=== PATIENT | male | born 2005 | race African-American/Black ===

== ENCOUNTER 2024-11-30 14:37 | Emergency (ER) | payer BC, SELFPAY ==
--- NOTE | ~2024-11-30 | CT_ITS ---
CLINICAL INDICATION: Abdominal pain and diarrhea COMPARISON: . TECHNIQUE: Multiple contiguous axial images of the abdomen and pelvis were performed following the ad ministration of with 100 mL Omnipaque-350 intravenous contrast The dose-length product (DLP) was 352.30 mGy-cm. Automated exposure control and iterative reconstruction technique were employed. FINDINGS/OBSERVATIONS: Visualized lower thorax: The bilateral lung bases are clear. The heart is of normal size, without pericardial effusion. Liver: The liver enhances homogeneously and is not enlarged measuring 17 cm in longitudinal dimension. Gallbladder and biliary system: The gallbladder is only minimally distended, and otherwise unremarkable. Pancreas: The pancreas enhances homogeneously without ductal dilatation. Spleen: The spleen enhances homogeneously and is not enlarged measuring 8 cm in longitudinal dimension. Kidneys: The bilateral kidneys enhance symmetrically without hydronephrosis or renal calculi. Adrenal glands: Unremarkable. Gastrointestinal tract: Significant fecal stasis is identified within the colon. Appendix: The air-filled appendix is of normal caliber (axial series, images 84 through 110) Vasculature: Unremarkable. Lymph nodes: No pathologically enlarged or morphologically suspicious lymph nodes within the retroperitoneum or at the root of the mesentery. Pelvic structures: The bladder is decompressed and otherwise unremarkable. The prostate gland is not enlarged. Body wall and musculoskeletal: No significant degenerative disease within the lower thoracic or lumbosacral spine. IMPRESSION: No acute intra-abdominal pathology, as detailed above Reviewed, dictated and finalized at location A. ITE HELPER
[2024-11-30 15:07] VITALS: BP 128/71; PULSE 90; RESP 19; TEMP 36.7; O2SAT 100
--- NOTE | 2024-11-30 15:32 | ED_ITS ---
HPI - General Adult General Chief complaint: Nausea/Vomiting/Diarrhea Stated complaint: diarrhea History of Present Illness HPI narrative: 19-year-old male with history of gastritis presented to the emergency department for evaluation for worsening left upper quadrant abdominal pain. Patient states last night he had increased emesis with associated abdominal pain. Patient also does report left lower quadrant abdominal pain. Patient states that he does not take daily medications but has been using Tums more frequently. Patient denies frequent ibuprofen use, denies any current alcohol. Related Data Allergies Allergy/AdvReac Type Severity Reaction Status Date / Time No Known Drug Allergies Allergy Unknown Verified 11/30/24 15:45 Review of Systems 2 Review of Systems: All systems reviewed & are unremarkable except as noted in HPI and below Exam 2 Narrative: APPEARANCE: Well appearing, no pain, no distress, well-nourished. HEAD: normocephalic, atraumatic. EYES: PERRLA/EOMI, conjunctivae clear. NOSE: Normal no drainage EARS:TMS clear with good light reflex. THROAT: Pharynx clear, no exudate. NECK: Supple. No adenopathy, no masses. RESPIRATORY: Airway patent, respirations nonlabored. Clear to auscultation bilaterally, no rales, rhonchi, wheezing. CARDIOVASCULAR: Regular rate and rhythm without murmurs rubs or gallops. ABDOMINAL: Soft, nontender, nondistended, normal bowel sounds MUSCULOSKELETAL: Moves all extremities. Strength/ROM intact, No edema, No calf tenderness. NEURO: Alert. Cranial nerves II through XII intact. Good gait. Good coordination SKIN: Warm, dry. Normal Color Course Vital Signs Vital signs: Vital Signs Temperature 98.1 F 11/30/24 15:07 Pulse Rate 90 11/30/24 15:07 Respiratory Rate 19 11/30/24 15:07 Blood Pressure 128/71 11/30/24 15:07 Pulse Oximetry 100 11/30/24 15:07 Temperature 98.1 F 11/30/24 15:07 Pulse Rate 90 11/30/24 15:07 Respiratory Rate 19 11/30/24 15:07 Blood Pressure 128/71 11/30/24 15:07 Pulse Oximetry 100 11/30/24 15:07 Medical Decision Making [facility] Narrative Medical decision making narrative: 19-year-old male presented emergency department for evaluation for epigastric and left upper quadrant abdominal pain. Patient is afebrile with no leukocytosis hemoglobin of 15.1. Patient's INR is 1.1. Patient has no acute abnormalities on his CMP. CTA was negative with no acute abdominal pathology. Patient was advised to avoid NSAIDs, avoid alcohol and to take omeprazole. Patient was encouraged close follow-up with GI. All questions concerns were addressed. Differential Diagnosis Differential Diagnosis: Colitis, diverticulitis, gastritis, gastric ulcer, upper GI bleed Vital Signs Vital Signs: Vital Signs Temperature 98.1 F 11/30/24 15:07 Pulse Rate 90 11/30/24 15:07 Respiratory Rate 19 11/30/24 15:07 Blood Pressure 128/71 11/30/24 15:07 Pulse Oximetry 100 11/30/24 15:07 Temperature 98.1 F 11/30/24 15:07 Pulse Rate 90 11/30/24 15:07 Respiratory Rate 19 11/30/24 15:07 Blood Pressure 128/71 11/30/24 15:07 Pulse Oximetry 100 11/30/24 15:07 Lab Data Lab results reviewed: Yes I reviewed the patient's lab results. 11/30/24 16:12 11/30/24 16:12 Labs: Lab Results 11/30/24 Range/Units 16:12 WBC 8.1 (4.5-10.0) K/mm3 RBC 5.32 (4.6-6.20) M/mm3 Hgb 15.1 (14.0-18.0) g/dL Hct 45.8 (42.0-52.0) % MCV 86.1 (80-100) fl MCH 28.4 (26-34) pg MCHC 33.0 (32-36) g/dl RDW 13.4 (11.5-14.5) % Plt Count 221 (150-375) k/mm3 MPV 9.4 (7.4-10.4) fl Immature Gran % (Auto) 0.4 (0-0.5) % Neut % (Auto) 77.6 H (45.5-73.1) % Lymph % (Auto) 16.1 L (18.3-44.2) % [place] % (Auto) 5.3 (2.6-8.5) % Eos % (Auto) 0.1 (0-4.4) % Baso % (Auto) 0.5 (0.2-1.2) % Lymph # (Auto) 1.31 (0.9-3.2) K/mm3 [place] # (Auto) 0.4 (0.1-0.6) K/mm3 Eos # (Auto) 0.0 (0-0.3) K/mm3 Baso # (Auto) 0.0 (0.0-0.1) K/mm3 Abs Immat Gran (auto) 0.03 (0.00-0.031) K/mm3 Absolute Neuts (auto) 6.3 (1.3-6.7) K/mm3 Absolute Nucleated RBC 0.000 (0.0-0.012) K/mm3 Nucleated RBC % 0.0 (0.0-0.2) % PT 14.5 (11.1-14.7) Seconds INR 1.1 APTT 28.0 (22.3-36.8) Seconds Sodium 142 (137-145) mmol/L Potassium 3.9 (3.4-5.0) mmol/L Chloride 107 (98-107) mmol/L Carbon Dioxide 23 (22-30) mmol/L Anion Gap 12 (4-12) mmol/L BUN 10 (9-20) mg/dL Creatinine 0.94 (0.7-1.3) mg/dL Estim Creat Clear Calc 121 ml/min Estimated GFR > 60 (59 - ) Glucose 98 (65-110) mg/dL Calcium 9.9 (8.4-10.2) mg/dL Total Bilirubin 0.9 (0.2-1.3) mg/dL AST 21 (17-59) U/L ALT 18 (6-50) U/L Alkaline Phosphatase 64 (38-126) U/L Total Protein 8.0 (6.3-8.2) g/dL Albumin 4.8 (3.5-5.1) g/dL Imaging Data Radiologist's impression: Impressions Abdomen/Pelvis CT 11/30/24 18:01 IMPRESSION: No acute intra-abdominal pathology, as detailed above Discharge Plan Discharge Clinical Impression: Abdominal pain, acute, epigastric Patient Disposition: Home, Self-Care Condition: Stable Instructions: Antibiotic Form, Diet for Stomach Ulcers and Gastritis (ED), Acute Abdominal Pain (ED) Additional Instructions: Avoid alcohol and avoid NSAIDs. Omeprazole as directed for the next 14 days. Have close follow-up with your primary care physician. You should also have close follow-up with GI. If you have any worsening symptoms and please call or return to the emergency department. Patient Language: Maldivian Prescriptions: New omeprazole 20 mg capsule,delayed release(DR/EC) 20 mg PO DAILY 14 Days Qty: 14 0RF Follow-up/Referrals: PHYSICIAN NOT ON STAFF,NONSTAFF [Primary Care Provider] - Ebenezer Valdez MD [Physician] -
--- OUTSIDE RECORDS SUMMARY | 2024-11-30 15:41 | XMS_ITS | Referral Summary ---
Author Organization [facility] Address [address] [place] [address] Care Team Providers Care Toy Assembly Supervisor Name Role Phone Antoinette Hancock MD Primary Care Provider Unav ailable Allergies No known active allergies Medications * This document contains information received from the source organization and may not represent a complete record from that organization. No known medications Active Problems No known active problems Immunizations Name Administration Dates Next Due Covid-19 Vaccine Pfizer 30 mcg/0.3 ml 02/26/2021 ,02/06/2021 DTAP 06/10/2009, 6,2004,2003,2004 HEP A 06/10/2015 HEP A,Ped/Adol,(2 Dose) 06/08/2021 HEP B/HIB 01/10/2006,2004,2004 Hpv Virus Vaccine 9 Sarah Im 06/08/2021 IPV 06/10/2009, 6,2004,2003 Influenza 08/07/2019 MMR 06/10/2009,06/09/2005 Meningococcal-Menactra 06/08/2021 Meningococcal-Menveo 2month-55yr 06/10/2015 Pneumococcal (Prevnar 13) 07/13/2006,02/2005,2004,2003 TDAP 06/10/2015 Varicella 06/10/2009,06/09/2005 Social History Tobacco Use Types Packs/Day Years Used Date Smoking Tobacco: Never Smokeless Tobacco: Never Alcohol Use Standard Drinks/Week Comments No 0 (1 standard drink = 0.6 oz pur e alcohol) PHQ-2 Answer Date Recorded PHQ-2 SCORE 1 06/08/2021 Sex and Gender Information Value Date Recorded Sex Assigned at Not on file 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 Gender Identity Not on file Sexual Orientation Not on file Last Filed Vital Signs Vital Sign Reading Time Taken Comments Blood Pressure 116/68 06/08/2021 2:39 PM CDT Pulse 81 11/23/2016 2:20 PM CYLINDER MACHINE OPERATOR Temperature 36.7 C (98 F) 11/23/2016 2:20 PM CYLINDER MACHINE OPERATOR Respiratory Rate 20 11/23/2016 2:20 PM CYLINDER MACHINE OPERATOR Oxygen Saturation 100% 11/23/2016 2:20 PM CYLINDER MACHINE OPERATOR Inhaled Oxygen Concentration - - Weight 83 kg (183 lb) 06/08/2021 2:39 PM CDT Height 182.9 cm (6') 06/08/2021 2:39 PM CDT Body Mass Index 24.82 06/08/2021 2:39 PM CDT Plan of Treatment Not on file Insurance [facility] PPO [facility] PPO BC[employer] CHOICE POS Care Teams Toy Assembly Supervisor Relationship Specialty Start Date End Date Antoinette Hancock MD PCP - General PEDIATRICS 11/28/16
--- OUTSIDE RECORDS SUMMARY | 2024-11-30 15:41 | XMS_ITS | Clinical Summary ---
Author Organization [facility] Address [address] [place] [address] Care Team Providers Care Outside Contractor Sales Name Role Phone Unavailable Primary Care Provider Unavailabl e Social History Tobacco Use Types Packs/Day Years Used Date Smoking Tobacco: Never Assessed Sex and Gender Information Value Date Recorded Sex Assigned at Not on file Gender Identity Not on file Sexual Orientation Not on file Plan of Treatment Health Maintenance Due Date Last Done Comments Annual Physical (ages 3 - 21) 2007 Depression Screening 2016 Varicella Vaccine (1 of 2 - 13+ 2-dose series) 2017 HPV Vaccine (1 - Male 3-dose series) 2019 Meningococcal Serogroup B Va ccine (1 of 2 - Standard) 2020 DTaP/Tdap/Td Vaccine (1 - Tdap) 2023 Hepatitis B Vaccine (1 of 3 - 19+ 3-dose series) 2023 COVID-19 Vaccine (1 - 2023-2 5 season) 2024 Influenza Vaccine (#1) 2024 Hepatitis A Vaccine Aged Out No longe r eligible based on patient's age to complete this topic Meningococcal Vaccine Aged Out No brandy neida eligible based on patient's age to complete this topic Pneumococcal Vaccine 0-49 Aged Out No longer eligible based on patient's age to complete this topic
--- OUTSIDE RECORDS SUMMARY | 2024-11-30 15:41 | XMS_ITS | Clinical Summary ---
Author Organization [facility] Address [address] [place] [id number] Phone Care Team Providers Care Accounting Manager Assistant Controller Name Role Phone Vaccine, Dr Sethi Conditions or Problems Problem Name Problem Code Onset Date Status Entry Date Provider Comment Standard Description Annotate Vaccination [id number] (SNOMED CT) Inactive Nilda Cheema Active immunization Medications No information available. Medications Administered No information available. Allergies, Adverse Reactions, Alerts No information available. Results No information available. Plan of Care No information available. Procedures Code Procedure Name Date Entry Date CPT-0004A Admin CV-19 Pfizer Booster Vaccine 10/29 Vital Signs Date Name Value Unit Description Body Temperature 97.5 [degF] temperat ure E&M Immunizations Vaccine Administration Date Standard Description CVX Co de Dose Pfizer COVID-19 Vaccine Dose 3 Pfizer COVID-19 Vaccine Dose 3 208 0.3 mL HRSA Pfizer COVID-19 Vaccine Dose 1 HRSA Pfizer COVID-19 Vaccine Dose 1 208 Unknown HRSA Pfizer COVID-19 Vaccine Dose 2 HRSA Pfizer COVID-19 Vaccine Dose 2 208 Unknown Advance Directives No information available.
--- OUTSIDE RECORDS SUMMARY | 2024-11-30 15:41 | XMS_ITS | Clinical Summary ---
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 Gender Identity Not on file Sexual Orientation Not on file Last Filed Vital Signs Vital Sign Reading Time Taken Comments Blood Pressure 116/68 06/08/2021 2:39 PM CDT Pulse 81 11/23/2016 2:20 PM CONTRACT GRAPHIC DESIGNER Temperature 36.7 C (98 F) 11/23/2016 2:20 PM CONTRACT GRAPHIC DESIGNER Respiratory Rate 20 11/23/2016 2:20 PM CONTRACT GRAPHIC DESIGNER Oxygen Saturation 100% 11/23/2016 2:20 PM CONTRACT GRAPHIC DESIGNER Inhaled Oxygen Concentration - - Weight 83 kg (183 lb) 06/08/2021 2:39 PM CDT Height 182.9 cm (6') 06/08/2021 2:39 PM CDT Body Mass Index 24.82 06/08/2021 2:39 PM CDT Plan of Treatment Health Maintenance Due Date Last Done Comments Annual Physical 2004 Meningococcal B Vaccine (1 o f 2 - Standard) 2020 HPV Vaccines (2 - Male 3-dos e series) 07/06/2021 06/08/2021 COVID-19 Vaccine (3 - 2023-2 5 season) 2024 02/26/2021, 02/06/2021 Influenza Vaccine (#1) 2024 08/07/2019 Annual Depression Screening 10/22/2024 04/20/2018 DTaP,Tdap,and Td Vaccines (7 - Td or Tdap) 06/10/2025 06/10/2015, 06/10/2009, 01/10/2006, Additional history exists Hepatitis B Vaccines Completed 01/10/2006, 2004, 2004 Pneumococcal Vaccine: to 50yrs Completed 07/13/2006, 2004, 2004, Additional history exists MMR Vaccines Completed 06/10/2009, 06/09/2005 Varicella Vaccines Completed 06/10/2009, 06/09/2005 Hepatitis A Vaccines Completed 06/08/2021, 06/10/20 15 Meningococcal Vaccine Completed 06/08/2021, 015 [facility] CHOICE POS Care Teams Fisher Dip Net Relationship Specialty Start Date End Date Antoinette Hancock MD PCP - General PEDIATRICS 11/28/16
--- OUTSIDE RECORDS SUMMARY | 2024-11-30 15:41 | XMS_ITS | Referral Summary ---
Author Organization [facility] Address [address] [place] [id number] Care Team Providers Care Flush Tester Name Role Phone Unavailable Primary Care Provider Unavailabl e Social History Tobacco Use Types Packs/Day Years Used Date Smoking Tobacco: Never Assessed Sex and Gender Information Value Date Recorded Sex Assigned at Not on file Gender Identity Not on file Sexual Orientation Not on file Plan of Treatment Not on file
--- OUTSIDE RECORDS SUMMARY | 2024-11-30 15:41 | XMS_ITS | Clinical Summary ---
Author Organization [facility] Address [address] [place] [address] Care Team Providers Care Data Transcriber Name Role Phone Jo Crystal MD Primary Care Provider [phone] Allergies No known active allergies Medications Medication Sig Dispensed Refills Start Date End Date Status FLUoxetine 20 MG Oral Cap Take 1 capsule (20 mg total) by mouth daily. Please take with 40 mg capsule to equal total dose of 60 mg daily 30 capsule 11/07/2023 Active FLUoxetine HCl 40 MG Oral Cap Take 1 capsule (40 mg total) by mouth daily. 30 capsule 1 12/03/2023 Active ARIPiprazole (ABILIFY) 2 MG Oral Tab Take 1 tablet (2 mg total) by mouth at bedtime. 30 tablet 01/23/2024 Active QUEtiapine 25 MG Oral Tab Take 1 tablet (25 mg total) by mouth nightly. 30 tablet 01/24/2024 Active traZODone 50 MG Oral Tab Take 1 tablet (50 mg total) by mouth nightly. 30 tablet 03/04/2024 Active TRAZODONE 100 MG Oral Tab Take 1 tablet by mouth nightly 30 tablet 04/28/2024 Active QUEtiapine 100 MG Oral Tab Take 1 tablet (100 mg total) by mouth nightly. 30 tablet 09/03/2024 Active FLUoxetine HCl 40 MG Oral Cap Take 1 capsule (40 mg total) by mouth daily. 30 capsule 09/03/2024 Active Active Problems Problem Noted Date Diagnosed Date Major depressive disorder, recurrent, moderate 1 11/03/2022 YOU (generalized anxiety disorder) 05/30/2023 Unspecified mood (affective) disorder 05/30/2023 Immunizations Name Administration Dates Next Due Covid-19 Vaccine Pfizer 30 mcg/0.3 ml 02/26/2021 ,02/06/2021 DTAP 06/10/2009, 6,2004,2003,2004 Flucelvax 0.5 ml Quad PRSV F ree 6m+ (72822) 08/07/2019 Flucelvax 0.5 ml TRI MDV (No t Prsv Free) 6mo-64yr (35816) 08/07/2019 HEP A 06/10/2015 HEP A,Ped/Adol,(2 Dose) 06/08/2021,06/10/2015 HEP B/HIB 01/10/2006,2004,2004 Hpv Virus Vaccine 9 Sarah Im 06/08/2021 IPV 06/10/2009, 6,2004,2003 MMR 06/10/2009,06/09/2005 Meningococcal-Menactra 06/08/2021 Meningococcal-Menveo 06/10/2015 Pneumococcal (Prevnar 13) 07/13/2006,02/2005,2004,2003 TDAP 06/10/2015 Varicella 06/10/2009,06/09/2005 Family History Medical History Relation Comments possibly bipolar Mother Relation Status Comments Father Alive Mother Alive Social History Tobacco Use Types Packs/Day Years Used Date Smoking Tobacco: Never Smokeless Tobacco: Never Tobacco Cessation:Counseling Given: Not Answered Alcohol Use Standard Drinks/Week Comments No 0 (1 standard drink = 0.6 oz pur e alcohol) PHQ-2 Answer Date Recorded PHQ-2 SCORE 1 06/08/2021 Sex and Gender Information Value Date Recorded Sex Assigned at Male 05/30/2023 12:28 PM CDT Gender Identity Male 05/30/2023 12:28 PM CDT Sexual Orientation Don't know 05/30/2023 12 :28 PM CDT Last Filed Vital Signs Vital Sign Reading Time Taken Comments Blood Pressure 100/60 05/17/2023 3:23 PM CDT Pulse 107 05/17/2023 3:23 PM CDT Temperature 37.2 C (98.9 F) 03/20/2023 1:19 PM CDT Respiratory Rate 18 03/20/2023 1:19 PM CDT Oxygen Saturation 96% 05/17/2023 3:23 PM CDT Inhaled Oxygen Concentration - - Weight 81.6 kg (180 lb) 05/17/2023 3:23 PM CDT Height 182.9 cm (6') 05/17/2023 3:23 PM CDT Body Mass Index 24.41 05/17/2023 3:23 PM CDT Plan of Treatment Health Maintenance Due Date Last Done Comments Annual Depression Screen 04/20/2019 04/20/2018 Meningococcal B Vaccine (1 o f 2 - Standard) 2020 HPV Vaccines (2 - Male 3-dos e series) 07/06/2021 06/08/2021 Annual Physical 05/17/2024 05/17/2023, 04/22, 06/08/2021, Additional history exists COVID-19 Vaccine (4 - 2023-2 5 season) 2024 10/29/2021, 02/26/2021, 02/06/2021 Influenza Vaccine (#1) 2024 08/07/2019, 2018 DTaP,Tdap,and Td Vaccines (7 - Td or Tdap) 06/10/2025 06/10/2015, 06/10/2009, 01/10/2006, Additional history exists Hepatitis B Vaccines Completed 01/10/2006, 2004, 2004 Pneumococcal Vaccine: to 64yrs Completed 07/13/2006, 2004, 2004, Additional history exists MMR Vaccines Completed 06/10/2009, 06/09/2005 Varicella Vaccines Completed 06/10/2009, 06/09/2005 Hepatitis A Vaccines Completed 06/08/2021, 06/10/2015, 06/10/2015 Meningococcal Vaccine Completed 06/08/2021, 015 Procedures Procedure Name Priority Date/Time Associated Diagnosis Comments PERIODIC PREVENTIVE MED EST PATIENT 12-17YRS Routine 06/08/2021 2:49 PM CDT Encounter for routine child health examination without abnormal findings from Last 3 Months or Most Recently Relevant to Health Maintenance Care Teams Data Transcriber Relationship Specialty Start Date End Date Jo Crystal MD PCP - General Pediatrics 10/12/22
--- OUTSIDE RECORDS SUMMARY | 2024-11-30 15:41 | XMS_ITS | Clinical Summary ---
Author Organization [facility] Address [address] [place], [place] [address] Care Team Providers Care Molder Apprentice Name Role Phone Unavailable Primary Care Provider Unavailabl e Social History Tobacco Use Types Packs/Day Years Used Date Smoking Tobacco: Never Assessed C Housing Answer Date Recorded Living Situation Not on file 06/08/2023 Housing Problems Not on file 06/08/2023 [facility] Safety Answer Date Recorded Threatened Not on file 06/08/2023 Insulted Not on file 06/08/2023 Physically Hurt Not on file 06/08/2023 Scream Not on file 06/08/2023 Sex and Gender Information Value Date Recorded Sex Assigned at Not on file Gender Identity Not on file Sexual Orientation Not on file Plan of Treatment Health Maintenance Due Date Last Done Comments HIV Screening 2004 MMR Vaccines (1 of 1 - Stand jaya series) 2005 Annual Physical 11/03/2006 Varicella Vaccines (1 of 2 - 13+ 2-dose series) 2017 HPV Vaccines (1 - Male 3-dos e series) 2019 Meningococcal B Vaccine (1 o f 2 - Standard) 2020 DTaP/Tdap/Td Vaccines (1 - Tdap) 2023 Hepatitis B Vaccines (1 of 3 - 19+ 3-dose series) 2023 COVID-19 Vaccine (1 - 2023-2 5 season) 2024 Influenza Vaccine (#1) 2024 Zoster Vaccines (1 of 2) 2054 Respiratory Syncytial Virus (RSV) 60 years and older and/or patients (1 - 1-dose 75+ series) 2079 Hepatitis A Vaccines Aged Out No long er eligible based on patient's age to complete this topic Meningococcal Vaccine Aged Out No brandy neida eligible based on patient's age to complete this topic Pneumococcal: Pediatrics (0 to 5 Yrs) and At-Risk Patients (6 to 49 Years) Aged Out No longer eligible b ased on patient's age to complete this topic Respiratory Syncytial Virus (RSV) <20 months Aged Out No longer eligible b ased on patient's age to complete this topic
[2024-11-30] MEDS: BELLADONNA ALK/PHENOB ELIX 10 ML, MAG HYDROX/ALUMINUM HYD/SIMETH 30 ML, LIDOCAINE 2% VI... PO (15:59)
[2024-11-30] MEDS: FAMOTIDINE 20 MG/2 ML VIAL IV PUSH (15:59)
[2024-11-30] MEDS: PANTOPRAZOLE SODIUM IV 40 MG VIAL IV PUSH (15:59)
[2024-11-30 16:18] LABS: Basophils Percent Auto 0.5 % (0.2-1.2); Eosinophils Percent Auto 0.1 % (0-4.4); Hematocrit 45.8 % (42.0-52.0); Hemoglobin 15.1 g/dL (14.0-18.0); Immature Granulocyte Absolute 0.03 K/mm3 (0.00-0.031); Immature Granulocyte Percent A 0.4 % (0-0.5); Lymphocytes Absolute Auto 1.31 K/mm3 (0.9-3.2); Lymphocytes Percent Auto 16.1 % (18.3-44.2); Mean Corpuscular Hemoglobin 28.4 pg (26-34); Mean Corpuscular Volume 86.1 fl (80-100); Mean Platelet Volume 9.4 fl (7.4-10.4); Monocytes Absolute Auto 0.4 K/mm3 (0.1-0.6); Monocytes Percent Auto 5.3 % (2.6-8.5); Neutrophils Absolute Auto 6.3 K/mm3 (1.3-6.7); Neutrophils Percent Auto 77.6 % (45.5-73.1); Platelet Count Result 221 k/mm3 (150-375); Red Blood Count 5.32 M/mm3 (4.6-6.20); Red Cell Distribution Width 13.4 % (11.5-14.5); White Blood Count 8.1 K/mm3 (4.5-10.0)
[2024-11-30 16:29] LABS: Alanine Aminotransferase 18 U/L (6-50); Albumin Level 4.8 g/dL (3.5-5.1); Alkaline Phosphatase 64 U/L (38-126); Anion Gap 12 mmol/L (4-12); Aspartate Amino Transferase 21 U/L (17-59); Bilirubin,Total 0.9 mg/dL (0.2-1.3); Blood Urea Nitrogen 10 mg/dL (9-20); Calcium 9.9 mg/dL (8.4-10.2); Carbon Dioxide 23 mmol/L (22-30); Chloride 107 mmol/L (98-107); Estimated CRCL calculation 121 ml/min; Estimated Glomerular Filt Rate > 60; Glucose 98 mg/dL (65-110); INR 1.1; Potassium 3.9 mmol/L (3.4-5.0); Prothrombin Time 14.5 Seconds (11.1-14.7); Sodium 142 mmol/L (137-145)
== END 2024-11-30 18:32 | disposition home or self-care (01) ==
PROVIDERS: Emergency Provider Emergency Medicine
DX: R10.13 Epigastric pain (principal)
CPT/HCPCS: 36415; 74177; 80053; 85025; 85610; 85730; 96374; 96375; 99284; A9270; J2470; Q9967